=== PATIENT | male | born 2005 | race Caucasian/White ===

== ENCOUNTER 2024-03-31 12:42 | Emergency (ER) | payer MEDICAID, SELFPAY ==
--- NOTE | ~2024-03-31 | XR_ITS ---
EXAMINATION: XR WRIST, RIGHT CLINICAL INFORMATION: Pain COMPARISON: None available. TECHNIQUE: PA, lateral, and oblique views of the right wrist. Dedicated navicular view. FINDINGS: The bones are intact. No fracture. Alignment is anatomic with normal joint spaces. No erosions or abnormal soft tissue calcifications. XR/XR wrist RT min 3V IMPRESSION: No bony abnormality. Electronically signed by: Nalini Salgado MD 03/31/2024 02:28 PM EDT
[2024-03-31 12:47] VITALS: BP 144/80; PULSE 101; RESP 16; TEMP 37; O2SAT 100; BMI 29.0
--- NOTE | 2024-03-31 12:47 | ED_ITS ---
HPI - Extremity Injury (Upper) General Chief Complaint: Extremity Injury, Upper Stated Complaint: cant open hand Time Seen by Provider: 03/31/24 14:14 Source: patient and family Mode of arrival: ambulatory Limitations: no limitations History of Present Illness ED Provider: Brien De Paz PA-C HPI narrative: 18 yo right hand dominant male presents to the ER for evaluation of acute onset of limited movement of his right hand and wrist that started yesterday. No injury or fall. 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 He reports he is unable to flex the wrist and has pain and tingling in the base of the thumb. no pain or numbness in the other digits. MD complaint: injury to: right, wrist and hand Onset (ago): day(s) (1) Other Extremity Injury: right: hand and wrist Other injuries: none Handedness: right Severity: moderate Relieving factors: none Exacerbating factors: movement of extremity Associated symptoms: denies other symptoms Related Data Previous Rx's ?Medication ?Instructions ?Recorded ibuprofen 600 mg tablet 600 mg PO Q8H PRN pain #14 tabs 03/31/24 Allergies Allergy/AdvReac Type Severity Reaction Status Date / Time No Known Allergies Allergy Verified 03/31/24 12:48 Review of Systems Review of Systems: Yes all other systems are reviewed and are negative [facility] Social History Social History Advance Directives: No Advance Directives Information Provided: No Do you have a plan to hurt others: No Plan Physical Exam Vital Signs: Vital Signs: Last Vital Signs Temp 97.8 F 03/31/24 14:27 Pulse 64 03/31/24 14:27 Resp 16 03/31/24 14:27 BP 111/54 L 03/31/24 14:27 Pulse Ox 97 03/31/24 14:27 O2 Del Method Room Air 03/31/24 14:27 BMI result Body Mass Index 29.0 Appearance: Alert. Oriented X3. No acute distress. HEENT: normal inspection CVS: Normal heart rate and rhythm. Pulses normal. Respiratory: No respiratory distress. Skin: Skin warm and dry. Normal skin color. Normal skin turgor. No rashes. Extremities: right wrist held in passive flexion at approximately 20-30 degrees. weakness with flexion of the wrist. able to oppose right thumb to all digits. tenderness at the base of the thumb. positive finkelsteins test. 2+ radial pulse Neuro: Oriented X 3. No motor deficit. No sensory deficit. Course Course Course Narrative: This is an RME: Additional HPI, ROS, PE not included below will be deferred to primary provider. RME assessment and note performed by: Jessica Robles PA-C This is a [id number]-male who presents to the ER with complaints of right wrist pain since yesterday. No known trauma or injury. Decreased ROM of the wrist and hand. 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 Plan:xray wrist Medical Decision Making Medical Decision Making MDM Narrative: 18 yo right hand dominant male presents to the ER for evaluation of acute onset of limited movement of his right hand and wrist that started yesterday. repetitive movements at work and at home. concern for dequervains tenosynovitis. XR today is normal will place in splint, start NSAIDs, RICE and f/u with orthopedics for further evaluation and treatment Differential Diagnosis Differential Diagnoses: The differential diagnosis associated with the presentation includes dequervains tenosynovitis, gamekeepers thumb, carpal tunnel syndrome, wrist sprain Consult Healthcare Provider Management of the patient was discussed with: Plant Control Aide ortho recommending thumb spica splint Independent Interpretation I performed an independent interpretation of an: Plain X-Ray Interpretation: no acute fx appreciated Radiology Impression Discussion of test interpretation with radiology: I have reviewed the radiologist's reading. Radiologist Impression: XR/XR wrist RT min 3V IMPRESSION: No bony abnormality. Independent Historian Clinical information obtained from an independent historian. History obtained from or confirmed by: Parent Prescription Management I considered prescription management with: Pain Medication Procedures Orthopedic Splinting/Casting Injury #1: Side: right Upper Extremity Injury Location: wrist and hand Upper Extremity Immobilizer: thumb spica Critical Care Time Critical Care Time Critical Care Time: No Discharge Plan Discharge Clinical Impression: De Quervain's tenosynovitis, right Patient Disposition: Home, Self-Care Instructions: De Quervain Disease (ED), Tenosynovitis (ED) Additional Instructions: XR today was normal wear the provided splint at all times unless bathing take the prescribed anti-inflammatory medication as directed use ice several times per day recommend following up with orthopedics for further evaluation and treatment - call for an appointment, name and number below If you develop new or worsening symptoms call 911 or come back to the ER for further evaluation. Prescriptions: New ibuprofen 600 mg tablet 600 mg PO Q8H PRN (Reason: pain) Qty: 14 0RF Referrals: [facility] Group] (dequervains tenosynovitis) Stand Alone Forms: Work/School Release Interventions: ED Discharge Assessment Last Done: 03/31/24 15:41 Print Language: Nepalese
[2024-03-31 14:27] VITALS: BP 111/54; PULSE 64; RESP 16; TEMP 36.6; O2SAT 97
--- NOTE | 2024-03-31 14:27 | PC.NURSE ---
pt a&ox3, c/o 01/25 pain to rt fa/wrist area- no swelling noted, pt states he did not take any otc medications at home for pain, vss, pt awaiting provider, will continue to monitor
[2024-03-31 15:41] VITALS: BP 111/54; PULSE 64; RESP 16; TEMP 36.6; O2SAT 97
== END 2024-03-31 15:52 | disposition home or self-care (01) ==
PROVIDERS: Emergency Provider Emergency Medicine
DX: M65.4 Radial styloid tenosynovitis [de Quervain] (principal); M25.531 Pain in right wrist
CPT/HCPCS: 29125; 73110; 99284

== ENCOUNTER 2024-04-18 15:01 | Outpatient (AMB) | payer OTHER, SELFPAY ==
--- NOTE | 2024-04-18 15:22 | A.OFFVIS_ITS ---
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 Patient reports about 2 weeks ago he woke up with his hand feeling weak. Denies injury. He presented to [facility] ER where a brace was applied and referred to orthopedics. His discomfort has improved however he still experiences weakness. States with use of force his hand will fall forward. He has numbness at his [facility]. No other tx. 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 The patient states that he awoke 1 morning after sleeping in an odd position to find that he was unable to actively extend his right wrist. The patient does state that his range of motion has been slowly improving since this time, but he is still unable to extend past neutral. Patient denies any numbness or tingling in the right upper extremity. Patient has been wearing the brace given to him in the emergency department since evaluation. No other acute complaints or concerns at this time. 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 Neuro: Normal sensation of the tips of all digits of the right hand at this time Vascular: Cap refill brisk Pain: Patient does report discomfort with resisted wrist extension in the right wrist No tenderness to palpation anywhere in the right wrist ROM: Patient is able to make a closed fist and extend all digits of the right hand fully Patient is able to flex the right wrist to approximately 70 degrees, but is unable to actively extend the right wrist past neutral at this time Skin: No lacerations or abrasions. General: No ecchymosis, erythema, or evidence of infection. Psych: Appears grossly normal Affect normal Attitude cooperative Assessment & Plan Assessment & Plan (1) Wrist drop, right wrist: Code(s): M21.331 - Wrist drop, right wrist Category: Medical Plan 1. Wrist drop of right wrist Patient is educated about this condition Patient is educated about the typical recovery course At this time, patient was referred to occupational therapy for range of motion and strengthening of the right wrist in the setting of a right wrist drop, likely secondary to a radial nerve palsy due to an awkward sleeping position Patient was also provided with a Velcro wrist splint to be worn with daytime activities Patient was amenable to this plan Patient will follow-up in 2 weeks for reassessment, sooner with any acute concerns Orders: Orders OT Evaluation and Treatment 04/18/24 M21.331 - Wrist drop, right wrist Coding Level of Care Code New Pt Level 3 (79669) Diagnoses Wrist drop, right wrist M21.331
[2024-04-18 15:27] VITALS: BMI 29.0
== END 2024-04-18 15:51 | disposition home or self-care (01) ==
LOC: HO.HOS 15:02
DX: M21.331 Wrist drop, right wrist (principal)
CPT/HCPCS: 99203

== ENCOUNTER 2024-04-30 13:23 | Outpatient (AMB) | payer OTHER, SELFPAY ==
--- NOTE | 2024-04-30 13:49 | A.OFFVIS_ITS ---
Vital Signs 04/30/24 13:50 Height 5 ft 6 in Weight 180 lb BMI 29.0 Handedness Right Intake Visit Reasons: OV-De Quervain's tenosynovitis, right, wrist drop Intake Note: Eric is a 18 year old right hand dominant male who presents today for a follow up visit for his right De Quervain's tenosynovitis and right wrist drop. Patient report his wrist got better. He expresses having no strength but his ROM has improved. He has not started OT however he says he has an upcoming appointment. Denies numbness and tingling. 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 Today, the patient reports that his symptoms have improved drastically since previous evaluation, and he is now able to get essentially full range of motion of his right wrist, although he does feel that the wrist is weaker than the left. Patient states that he would we will be beginning occupational therapy this week. Patient states that he no longer requires the Velcro wrist splint at work, as he is able to move his wrist fully. No other acute acute complaints or concerns at this time. 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 Neuro: Normal sensation of the tips of all digits of the right hand at this time Vascular: Cap refill brisk Pain: Patient does report discomfort with resisted wrist extension in the right wrist No tenderness to palpation anywhere in the right wrist ROM: Patient is able to make a closed fist and extend all digits of the right hand fully Patient is able to flex the right wrist to approximately 70 degrees, and is able to extend the right wrist to approximately 60 degrees past neutral Skin: No lacerations or abrasions. General: No ecchymosis, erythema, or evidence of infection. Psych: Appears grossly normal Affect normal Attitude cooperative Assessment & Plan Assessment & Plan (1) Wrist drop, right wrist: Code(s): M21.331 - Wrist drop, right wrist Category: Medical Plan 1. Wrist drop of right wrist Patient is educated about this condition Patient is educated about the typical recovery course At this time, patient is advised that he should continue with occupational therapy for range of motion and strengthening of the right wrist in the setting of a right wrist drop, likely secondary to a radial nerve palsy due to an awkward sleeping position Patient was advised that he only will require use of the Velcro wrist splint while at work or with other strenuous daytime activities Patient was amenable to this plan Patient will follow-up as needed with any acute concerns Coding Level of Care Code Est Pt Level 3 (51590) Diagnoses Wrist drop, right wrist M21.331
[2024-04-30 13:50] VITALS: BMI 29.0
== END 2024-04-30 14:05 | disposition home or self-care (01) ==
DX: M21.331 Wrist drop, right wrist (principal)
CPT/HCPCS: 99213

== ENCOUNTER 2024-05-01 09:02 | Outpatient (RCR) | payer OTHER, SELFPAY ==
--- NOTE | 2024-05-05 12:52 | MHC.OT.EP ---
[address] [phone] Occupational Therapy Plan of Care Patient Name: Eric Saldaña Date of Evaluation: 05/01/24 Diagnosis: R hand weakness Pain Location: intermittent w/ applied pressure/ weight bearing to thumb Pain Score: 1 Pain Scale Used: Numeric (0 - 10) Aggravating Factors: Alleviating Factors: Assessment: Pt is a 18 yr. old R hand dominant male who reports in early March falling asleep in his chair and waking up w/ R wrist drop. He reports improvements in AROM over the next few days but his hand continues to be weak. 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 Pt has been referred to skilled OT therapy to increase strength and functional use of his dominant hand. Frequency and Duration: The patient will be seen 2xs a week for 4 weeks Short Term Goals: Pt will adhere to HEP Pt will increase his R marketing operations consultant strength to 45 lbs Hair Blender Goals: Pt will increase R marketing operations consultant strength to 70lbs Pt will increase R tip to tip pinch to 10 lbs Pt will RPLOF Treatment Plan: Therapeutic Exercise Therapeutic Activity Home Exercise Program Splinting Neuro Re-ed Patient Education Desensitization/Sensory Re-ed Edema Control ADL Training Ultrasound NMES Iontophoresis Paraffin Fluidotherapy MHP Cold Packs Joint Mobilization Soft Tissue Mobilization Kinesiotaping Other (see comments) Electronically Signed By: Cassy Jorgensen OTR/L Please Sign and return to therapist. Thank you once again for your referral.
--- NOTE | 2024-05-20 10:26 | MHC.OT.DC ---
[address] [phone] F: [phone] Occupational Therapy Discharge Note Patient Name: Eric Saldaña Provider: Malick Mitchell Diagnosis: R hand weakness Date of Surgery: Date of Evaluation: 05/01/24 Date of Discharge: Treatments to Date: 1 Cancellations to Date: No Shows to Date: Discharge Status: Visit Non-compliance Discharge Summary: Pt is a 18 yr. old R hand dominant male who reports in early March falling asleep in his chair and waking up w/ R wrist drop. He reports improvements in AROM over the next few days but his hand continues to be weak. 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 Pt has been referred to skilled OT therapy to increase strength and functional use of his dominant hand. Electronically Signed By: Machelle Steward OTR/Raffi, VICKYT Reviewed/agree with student documentation: N/A Therapist: Please Sign and return to therapist, thank you for your referral.
== END 2024-05-20 10:27 | disposition home or self-care (01) ==
LOC: HO.OT 09:02
DX: M21.331 Wrist drop, right wrist (principal)
CPT/HCPCS: 97110; 97165